=== PATIENT | male | born 1965 | race Caucasian/White ===

== ENCOUNTER 2019-02-24 09:59 | Inpatient (IN) | payer MEDICAID ==
[~2019-02-24] VITALS: Ht 193 cm; Wt 87.5 kg
[2019-02-24 10:10] VITALS: BP 121/67
[2019-02-24] MEDS ORDERED: DULO20CA30 PO (10:14)
[2019-02-24] MEDS ORDERED: BUSP5TAB20 PO (10:14)
[2019-02-24] MEDS ORDERED: CARV25 PO (10:24)
[2019-02-24] MEDS ORDERED: PNEUMOCOCCAL VACCINE POLYVALENT 0.5 ML VIAL [PPSV23] IM ONE (11:00)
[2019-02-24] MEDS ORDERED: ZOLPIDEM TARTRATE 10 MG TABLET PO PRN (11:00)
[2019-02-24] MEDS ORDERED: MAGNESIUM HYDROXIDE SUSPENSION 30 ML UDCUP PO PRN (13:15)
[2019-02-24] MEDS ORDERED: BENZOCAINE/MENTHOL LOZENGE MM PRN (13:15)
[2019-02-24] MEDS ORDERED: PETROLATUM,WHITE 28 GM JELLY TP PRN (13:15)
[2019-02-24] MEDS ORDERED: ONDANSETRON HCL 4 MG TABLET PO PRN (13:15)
[2019-02-24] MEDS ORDERED: CloNIDine HCL 0.1 MG TABLET PO PRN (13:15)
[2019-02-24] MEDS ORDERED: MAG HYDROX/AL HYDROX/SIMETH ES 30 ML SUSPENSION UDCUP PO PRN (13:15)
[2019-02-24] MEDS ORDERED: ALBUTEROL SULFATE HFA 90 MCG/PUFF 8 GM INHALER IH PRN (13:15)
[2019-02-24] MEDS ORDERED: IBUPROFEN 600 MG TABLET PO PRN (13:15)
[2019-02-24] MEDS ORDERED: LOPERAMIDE HCL 2 MG CAPSULE PO PRN (13:15)
[2019-02-24] MEDS ORDERED: BACITRACIN 28.4 GM OINTMENT TP PRN (13:15)
[2019-02-24] MEDS ORDERED: OMEPRAZOLE 20 MG CAPSULE PO PRN (13:15)
[2019-02-24] MEDS ORDERED: DOCUSATE SODIUM 100 MG CAPSULE PO PRN (13:15)
[2019-02-24 16:09] VITALS: BP 112/65
[2019-02-24] MEDS: BACITRACIN 28.4 GM OINTMENT TP SCH (17:11)
[2019-02-25 02:48] VITALS: BP 110/70
[2019-02-25] MEDS: ACETAMINOPHEN 325 MG TABLET PO PRN (03:21)
[2019-02-25] MEDS: LORazepam 2 MG TABLET PO PRN ×2 (05:13→18:12)
[2019-02-25 08:13] VITALS: BP 114/65
[2019-02-25] MEDS: BACITRACIN 28.4 GM OINTMENT TP SCH ×3 (08:44→17:07)
[2019-02-25] MEDS: PRAMIPEXOLE DI-HCL 0.25 MG TABLET PO SCH (08:44)
[2019-02-25] MEDS: CARVEDILOL 25 MG TABLET PO SCH (08:44)
[2019-02-25] MEDS: BuPROPion HCL XL 150 MG ER TABLET PO SCH (11:19)
[2019-02-25] MEDS: BusPIRone HCL 15 MG TABLET PO SCH ×2 (13:03→17:07)
[2019-02-25 16:34] VITALS: BP 106/66
[2019-02-25] MEDS: HALOPERIDOL 5 MG TABLET PO PRN (18:12)
[2019-02-25] MEDS: NICOTINE 21 MG/24 HOUR PATCH TD SCH (20:56)
[2019-02-26] MEDS: LORazepam 2 MG TABLET PO PRN ×3 (03:29→21:16)
[2019-02-26 03:39] VITALS: BP 116/82
[2019-02-26 08:26] VITALS: BP 133/83
[2019-02-26] MEDS: BusPIRone HCL 15 MG TABLET PO SCH ×3 (08:31→16:41)
[2019-02-26] MEDS: PRAMIPEXOLE DI-HCL 0.25 MG TABLET PO SCH (08:31)
[2019-02-26] MEDS: BACITRACIN 28.4 GM OINTMENT TP SCH ×3 (08:31→16:40)
[2019-02-26] MEDS: CARVEDILOL 25 MG TABLET PO SCH (08:31)
[2019-02-26] MEDS: BuPROPion HCL XL 150 MG ER TABLET PO SCH (08:31)
[2019-02-26] MEDS: NICOTINE 21 MG/24 HOUR PATCH TD SCH (08:31)
[2019-02-26 14:42] VITALS: BP 128/78
[2019-02-26] MEDS: ACETAMINOPHEN 325 MG TABLET PO PRN (14:42)
[2019-02-26 16:31] VITALS: BP 115/69
[2019-02-26] MEDS: GABAPENTIN 300 MG CAPSULE PO SCH ×2 (17:29→21:16)
[2019-02-26] MEDS: HALOPERIDOL 5 MG TABLET PO PRN (21:16)
[2019-02-27 00:54] VITALS: BP 118/67
[2019-02-27 08:26] VITALS: BP 121/72
[2019-02-27] MEDS: BuPROPion HCL XL 150 MG ER TABLET PO SCH (09:14)
[2019-02-27] MEDS: GABAPENTIN 300 MG CAPSULE PO SCH ×4 (09:15→20:09)
[2019-02-27] MEDS: BACITRACIN 28.4 GM OINTMENT TP SCH ×3 (09:15→17:00)
[2019-02-27] MEDS: BusPIRone HCL 15 MG TABLET PO SCH ×3 (09:15→17:57)
[2019-02-27] MEDS: CARVEDILOL 25 MG TABLET PO SCH (09:15)
[2019-02-27] MEDS: NICOTINE 21 MG/24 HOUR PATCH TD SCH (09:15)
[2019-02-27] MEDS: LORazepam 2 MG TABLET PO PRN ×2 (11:42→17:59)
[2019-02-27 14:20] VITALS: BP 125/86
[2019-02-27 16:09] VITALS: BP 113/69
[2019-02-27] MEDS ORDERED: PRAMIPEXOLE DI-HCL 0.25 MG TABLET PO SCH (21:00)
[2019-02-28 03:57] VITALS: BP 106/81
[2019-02-28 08:19] VITALS: BP 113/84
[2019-02-28] MEDS: CARVEDILOL 25 MG TABLET PO SCH (08:38)
[2019-02-28] MEDS: BuPROPion HCL XL 150 MG ER TABLET PO SCH (08:38)
[2019-02-28] MEDS: BusPIRone HCL 15 MG TABLET PO SCH ×2 (08:38→12:24)
[2019-02-28] MEDS: GABAPENTIN 300 MG CAPSULE PO SCH ×2 (08:38→12:25)
[2019-02-28] MEDS: BACITRACIN 28.4 GM OINTMENT TP SCH ×2 (08:39→12:32)
[2019-02-28] MEDS: NICOTINE 21 MG/24 HOUR PATCH TD SCH (08:39)
[2019-02-28] MEDS: LORazepam 2 MG TABLET PO PRN (09:15)
[2019-02-28] MEDS ORDERED: BUSP15 PO (10:54)
[2019-02-28] MEDS ORDERED: BUPR75 PO (10:54)
[2019-02-28] MEDS ORDERED: PRAM15 PO (10:54)
[2019-02-28] MEDS ORDERED: GABA-531 PO (10:54)
[2019-02-28] MEDS ORDERED: CARV25 PO (10:54)
== END 2019-02-28 13:20 | disposition home or self-care (01) | DRG 751 ==
LOC: B2S 11:56
PROVIDERS: ADMIT Psychiatry & Neurology Psychiatry; ATTEND Psychiatry & Neurology Psychiatry
PROC: 3E0234Z Introduction of Serum, Toxoid and Vaccine into Muscle, Percutaneous Approach (ICD-10-PCS; principal; 2019-02-25)
DX: F33.2 Major depressive disorder, recurrent severe without psychotic features (principal); R45.851 Suicidal ideations; F15.90 Other stimulant use, unspecified, uncomplicated; F41.9 Anxiety disorder, unspecified; G25.81 Restless legs syndrome; G47.00 Insomnia, unspecified; K59.00 Constipation, unspecified; Z59.0 Homelessness; Z95.0 Presence of cardiac pacemaker; Z79.899 Other long term (current) drug therapy; Z23 Encounter for immunization
CPT/HCPCS: 90732